=== PATIENT | male | born 1940 | race Asian ===

== ENCOUNTER → 2018-02-07 | Outpatient (CLI) | payer MEDICARE, OTHER | END | disposition home or self-care (01) | LOC: RADMN 09:45 | PROVIDERS: ATTEND Specialist | DX: M50.222 Other cervical disc displacement at C5-C6 level (principal); M48.02 Spinal stenosis, cervical region | CPT/HCPCS: 72141 ==

== ENCOUNTER → 2018-03-14 | Outpatient (CLI) | payer MEDICARE, OTHER | END | disposition home or self-care (01) | LOC: RADPV 08:43 | PROVIDERS: ATTEND Family Medicine | DX: M25.561 Pain in right knee (principal) ==

== ENCOUNTER → 2018-08-24 | Day surgery (SDC) | payer MEDICARE, OTHER ==
[~2018-08-24] VITALS: Ht 167.6 cm; Wt 70.0 kg
[~2018-08-24] MED LIST: ACETYLCHOLINE CHLORIDE 1 EA INTRAOCULAR SOLUTION KIT IO ONE; ASPI81 PO; AcetaZOLAMIDE 250 MG TABLET ONE; AcetaZOLAMIDE 250 MG TABLET PO ONE; BALANCED SALT 15 ML OPHTHALMIC IRRIG.SOLN OS ONE; DEXAMETHASONE SOD PHOS 4 MG/ML VIAL IVP ONE; DICLOFENAC SODIUM 0.1% 2.5 ML OPHTHALMIC SOLUTION ONE; DICLOFENAC SODIUM 0.1% 2.5 ML OPHTHALMIC SOLUTION OS ONE; DOXA2TAB PO; FentaNYL CITRATE-PF 100 MCG/2 ML VIAL IVP ONE; GABA-531 PO; HYALURONATE SOD/CHONDROITIN SOD 0.5 ML VIAL IO ONE; HYALURONATE SODIUM 12 MG/ML 0.8 ML SYRINGE IO ONE; LIDOCAINE/PF 1% 2 ML VIAL IM ONE; LISI-661 PO; METF-960 PO; MIDAZOLAM HCL 2 MG/2 ML VIAL IVP ONE; MOXIFLOXACIN HCL 0.5% 3 ML OPHTHALMIC SOLUTION ONE; MOXIFLOXACIN HCL 0.5% 3 ML OPHTHALMIC SOLUTION OS ONE; PHENYLEPHRINE HCL 2.5% 2 ML OPHTHALMIC SOLUTION ONE; POVIDONE-IODINE 10% 15 ML SOLUTION UD TP ONE; RANI150T7 PO; RINGERS SOLUTION,LACTATED 500 ML IV ONE; SIMV-259 PO; TETRACAINE HCL VISCOUS 0.5% 0.6 ML OPHTHALMIC SOLUTION OS ONE; TROPICAMIDE 1% 2 ML OPHTHALMIC SOLUTION ONE
[2018-08-24 07:38] LABS: GLUCOMETER DEV NAME(LOC) SDS.; GLUCOSE,POINT OF CARE 129 MG/DL (70-110)
[2018-08-24] MEDS: TROPICAMIDE 1% 2 ML OPHTHALMIC SOLUTION OS SCH ×2 (07:40→07:45)
[2018-08-24] MEDS: PHENYLEPHRINE HCL 2.5% 2 ML OPHTHALMIC SOLUTION OS SCH ×2 (07:41→07:45)
== END | disposition home or self-care (01) ==
LOC: SURGERY 06:54
PROVIDERS: ATTEND Specialist
DX: E11.36 Type 2 diabetes mellitus with diabetic cataract (principal); H25.12 Age-related nuclear cataract, left eye; H40.1122 Primary open-angle glaucoma, left eye, moderate stage; I10 Essential (primary) hypertension; E78.00 Pure hypercholesterolemia, unspecified; M19.90 Unspecified osteoarthritis, unspecified site; Z79.84 Long term (current) use of oral hypoglycemic drugs; Z79.82 Long term (current) use of aspirin; Z79.891 Long term (current) use of opiate analgesic; Z79.899 Other long term (current) drug therapy
CPT/HCPCS: 0191T; 65785; 66982; 82962; 93005; C1780; C1783; J1100; J2250; J3010; J3490 ×2; J7120

== ENCOUNTER → 2020-07-05 | Outpatient (CLI) | payer MEDICARE, OTHER ==
[~2020-07-05] MED LIST changes: -ACETYLCHOLINE CHLORIDE 1 EA INTRAOCULAR SOLUTION KIT IO ONE; +ASPI-728 PO; -ASPI81 PO; -AcetaZOLAMIDE 250 MG TABLET ONE; -AcetaZOLAMIDE 250 MG TABLET PO ONE; -BALANCED SALT 15 ML OPHTHALMIC IRRIG.SOLN OS ONE; -DEXAMETHASONE SOD PHOS 4 MG/ML VIAL IVP ONE; -DICLOFENAC SODIUM 0.1% 2.5 ML OPHTHALMIC SOLUTION ONE; -DICLOFENAC SODIUM 0.1% 2.5 ML OPHTHALMIC SOLUTION OS ONE; -FentaNYL CITRATE-PF 100 MCG/2 ML VIAL IVP ONE; +GABA-1181 PO; -GABA-531 PO; -HYALURONATE SOD/CHONDROITIN SOD 0.5 ML VIAL IO ONE; -HYALURONATE SODIUM 12 MG/ML 0.8 ML SYRINGE IO ONE; -LIDOCAINE/PF 1% 2 ML VIAL IM ONE; -MIDAZOLAM HCL 2 MG/2 ML VIAL IVP ONE; -MOXIFLOXACIN HCL 0.5% 3 ML OPHTHALMIC SOLUTION ONE; -MOXIFLOXACIN HCL 0.5% 3 ML OPHTHALMIC SOLUTION OS ONE; -PHENYLEPHRINE HCL 2.5% 2 ML OPHTHALMIC SOLUTION ONE; -POVIDONE-IODINE 10% 15 ML SOLUTION UD TP ONE; -RINGERS SOLUTION,LACTATED 500 ML IV ONE; -TETRACAINE HCL VISCOUS 0.5% 0.6 ML OPHTHALMIC SOLUTION OS ONE; -TROPICAMIDE 1% 2 ML OPHTHALMIC SOLUTION ONE
== END | disposition home or self-care (01) ==
LOC: RADPV 09:49
PROVIDERS: ATTEND Family Medicine
DX: M17.12 Unilateral primary osteoarthritis, left knee (principal); M25.462 Effusion, left knee; M25.562 Pain in left knee; M25.561 Pain in right knee
CPT/HCPCS: 73562-TC